=== PATIENT | male | born 1970 | race Caucasian/White ===

== ENCOUNTER 2021-03-18 05:18 | Day surgery (SDC) | payer BC, OTHER ==
[2021-03-18 08:43] VITALS: TEMP 97.5
[2021-03-18 09:39] VITALS: BP 137/93; PULSE 55
== END 2021-03-18 09:44 | disposition home or self-care (01) ==
LOC: JASU-ENDO 05:18
PROVIDERS: ATTEND Internal Medicine Gastroenterology
PROC: 0DBH8ZX Excision of Cecum, Via Natural or Artificial Opening Endoscopic, Diagnostic (ICD-10-PCS; 2021-03-18)
PROC: 0DBP8ZX Excision of Rectum, Via Natural or Artificial Opening Endoscopic, Diagnostic (ICD-10-PCS; 2021-03-18)
PROC: 0DBL8ZX Excision of Transverse Colon, Via Natural or Artificial Opening Endoscopic, Diagnostic (ICD-10-PCS; principal; 2021-03-18 08:00)
DX: Z12.11 Encounter for screening for malignant neoplasm of colon (principal); K62.1 Rectal polyp; D12.0 Benign neoplasm of cecum; D12.3 Benign neoplasm of transverse colon

== ENCOUNTER 2022-11-15 04:51 | Day surgery (SDC) | payer BC ==
[2022-11-10 08:28] VITALS: BMI 27.4
[2022-11-15 10:43] VITALS: TEMP 97.1
[2022-11-15 11:08] VITALS: PULSE 60
[2022-11-15 11:13] VITALS: BP 121/82; RESP 19
== END 2022-11-15 11:30 | disposition home or self-care (01) ==
LOC: JASU-ENDO 04:51
PROVIDERS: ATTEND Internal Medicine Gastroenterology
PROC: 0DB68ZX Excision of Stomach, Via Natural or Artificial Opening Endoscopic, Diagnostic (ICD-10-PCS; 2022-11-15)
PROC: 0DB98ZX Excision of Duodenum, Via Natural or Artificial Opening Endoscopic, Diagnostic (ICD-10-PCS; principal; 2022-11-15 12:00)
DX: K29.50 Unspecified chronic gastritis without bleeding (principal)
CPT/HCPCS: 88305-TC; 88342-TC

== ENCOUNTER 2023-08-11 13:22 | Emergency (ER) | payer OTHER, BC ==
[2023-08-11 13:29] VITALS: BP 142/87; PULSE 79; RESP 20; TEMP 98.7; BMI 27.1
== END 2023-08-11 14:44 | disposition home or self-care (01) ==
LOC: JERFT 13:22
PROC: 2W3QX1Z Immobilization of Right Lower Leg using Splint (ICD-10-PCS; principal; 2023-08-11)
DX: S99.191A Other physeal fracture of right metatarsal, initial encounter for closed fracture (principal); X50.9XXA Other and unspecified overexertion or strenuous movements or postures, initial encounter
CPT/HCPCS: 73610-TC-RT-FY; 73630-TC-RT-FY; 99283-25

== ENCOUNTER 2024-03-26 07:44 | Day surgery (SDC) | payer BC, OTHER ==
[2024-03-14 14:02] VITALS: BMI 26.6
[2024-03-26 09:41] VITALS: RESP 18; TEMP 98.3
[2024-03-26 10:39] VITALS: BP 123/80; PULSE 52
== END 2024-03-26 10:39 | disposition home or self-care (01) ==
LOC: JASU-ENDO 07:44
PROVIDERS: ATTEND Internal Medicine Gastroenterology
PROC: 0DBP8ZX Excision of Rectum, Via Natural or Artificial Opening Endoscopic, Diagnostic (ICD-10-PCS; principal; 2024-03-26 09:00)
DX: Z12.11 Encounter for screening for malignant neoplasm of colon (principal); D12.8 Benign neoplasm of rectum; K64.8 Other hemorrhoids; Z86.0100 Personal history of colon polyps, unspecified; Z83.719 Family history of colon polyps, unspecified
CPT/HCPCS: 88305-TC